=== PATIENT | male | born 1950 | race Caucasian/White ===

== ENCOUNTER 2019-03-25 14:27 | Inpatient (IN) | payer OTHER ==
--- NOTE | 2019-03-25 14:32 | PDOC ---
Rapid Medical Evaluation Time Seen by Provider: 03/25/19 14:30 Medical Evaluation: Allergies Allergy/AdvReac Type Severity Reaction Status Date / Time No Known Drug Allergies Allergy Verified 05/07/13 09:09 03/25/19 14:31 I have performed a brief in-person evaluation of this patient. The patient presents with a chief complaint of: arm swelling Pertinent physical exam findings:stable and in NAD, non-focal I have ordered the following:labs The patient will proceed to the ED for further evaluation.
--- NOTE | 2019-03-25 15:01 | PDOC ---
History of Present Illness - General Chief Complaint: Wound Stated Complaint: LT ARM PAIN Time Seen by Provider: 03/25/19 14:30 - History of Present Illness Initial Comments: The pt is a 69M w/ a history of hypothyroidism and HLD who presents for evaluation of 2 days of LUE swelling, redness, and tenderness after receiving the PNA vaccine. He reports worsening swelling, redness, and pain from his shoulder to hand. He tried taking Naproxen at home with minimal relief of pain. He is also s/p 2 doses of Augmentin. He denies fevers/chills, generalized myalgias, malaise, N/V, or other rash/ swelling. He has never received the PNA vaccine before but has not has this type of reaction to previous vaccines. 03/25/19 15:02 Past History - Past Medical History Allergies/Adverse Reactions: Allergies Allergy/AdvReac Type Severity Reaction Status Date / Time Quinolones Allergy Severe Rash Verified 03/25/19 15:29 Home Medications: Ambulatory Orders Levothyroxine [Synthroid -] 125 mcg PO DAILY 05/07/13 Rosuvastatin Calcium [Crestor] 10 mg PO DAILY 05/07/13 Anemia: No Asthma: No Cancer: No Cardiac Disorders: No CVA: No COPD: No CHF: No Dementia: No Diabetes: No GI Disorders: No Disorders: No HTN: No Hypercholesterolemia: Yes Liver Disease: No Seizures: No Thyroid Disease: Yes (HYPOTHYROID) - Surgical History Abdominal Surgery: No Appendectomy: Yes Cardiac Surgery: No Cholecystectomy: No Lung Surgery: No Neurologic Surgery: No Orthopedic Surgery: Yes (DUPUYTRENS RELEASE RIGHT HAND X2,) - Immunization History Immunization Up to Date: No - Psycho Social/Smoking Cessation Hx Smoking History: Never smoked Have you smoked in the past 12 months: No If you are a former smoker, when did you quit?: 30YRS AGO Information on smoking cessation initiated: No Hx Alcohol Use: Yes Drug/Substance Use Hx: No Substance Use Type: Alcohol Hx Substance Use Treatment: No Review of Systems - Review of Systems Able to Perform ROS?: Yes Comments:: GENERAL/CONSTITUTIONAL: No fever or chills. No weakness HEAD, EYES, EARS, NOSE AND THROAT: No change in vision. No change in hearing. No sore throat CARDIOVASCULAR: No chest pain or shortness of breath RESPIRATORY: Denies cough, hemoptysis GASTROINTESTINAL: No nausea, vomiting, diarrhea or constipation GENITOURINARY: No dysuria, frequency, or change in urination MUSCULOSKELETAL: +LUE swelling/pain. No neck or back pain SKIN: LUE redness/swelling NEUROLOGIC: No headache, vertigo, loss of consciousness, or change in strength/ sensation ENDOCRINE: No increased thirst. No abnormal weight change HEMATOLOGIC/LYMPHATIC: No anemia, easy bleeding, or history of blood clots ALLERGIC/IMMUNOLOGIC: No hives or skin allergy 03/25/19 15:01 Is the patient limited Welsh proficient: No *Physical Exam - Vital Signs Last Vital Signs Temp Pulse Resp BP Pulse Ox 97.9 F 68 16 93/70 98 03/25/19 14:31 03/25/19 14:31 03/25/19 14:31 03/25/19 14:31 03/25/19 14:31 - Physical Exam Comments: GENERAL: Awake, alert, and oriented to person/place/time, in no acute distress HEAD: No signs of trauma, normocephalic, atraumatic EYES: PERRLA, EOMI, sclera anicteric, conjunctiva clear ENT: Hearing grossly normal, nares patent, oropharynx clear without exudates. Moist mucosa LUNGS: No distress, speaks in full sentences, clear to auscultation bilaterally HEART: Regular rate and rhythm, normal S1 and S2, no murmurs appreciated, b/l radial pulses 2+ ABDOMEN: Soft, nontender, normoactive bowel sounds. No guarding, no rebound EXTREMITIES: +LUE swelling from hand to proximal upper extremity; increased tenderness throughout extremity; ROM intact; no pain on passive stretch NEUROLOGICAL: Cranial nerves II through XII grossly intact. Normal speech, normal gait, no focal sensorimotor deficits SKIN: +erythema of LUE from wrist to proximal LUE circumferentially 03/25/19 15:01 ED Treatment Course - LABORATORY CBC & Chemistry Diagram: 03/25/19 15:30 03/25/19 15:30 Medical Decision Making - Medical Decision Making The pt is a 69M w/ a history of hypothyroidism and HLD who presents for evaluation of 2 days of LUE cellulitis after receiving the PNA vaccine. ED Course CMP, CBC, Blood cultures ECG Will obtain LUE duplex to eval for DVT Case discussed with Dr. Hansen, will give Zosyn if Cr wnl 03/25/19 15:26 Lytes wnl No LILIBETH LFTs wnl Zosyn 4.5g IV once for cellulitis Plan for admission for IV abx 03/25/19 16:40 Pt signed out to [facility] Admitting 03/25/19 17:16 LUE US w/o evidence of DVT ECG w/ NSR; HR 63; QTc 440; several PAC's noted; borderline left axis deviation ; no VAIBHAV; interpreted by me 03/25/19 18:52 Discharge - Discharge Information Problems reviewed: Yes Clinical Impression/Diagnosis: Cellulitis of left upper extremity HLD (hyperlipidemia) Qualifiers: Hyperlipidemia type: unspecified Qualified Code(s): E78.5 - Hyperlipidemia, unspecified Hypothyroidism Qualifiers: Hypothyroidism type: unspecified Qualified Code(s): E03.9 - Hypothyroidism, unspecified Condition: Stable - Admission Yes - Follow up/Referral - Patient Discharge Instructions - Post Discharge Activity
--- NOTE | 2019-03-25 15:40 | PDOC ---
Documentation entered by Arvin Garcia SCRIBE, acting as scribe for Constantine Toney MD. Constantine Toney MD: This documentation has been prepared by the Radha harrington Nirvannie, SCRIBE, under my direction and personally reviewed by me in its entirety. I confirm that the documentation accurately reflects all work, treatment, procedures, and medical decision making performed by me. Attending Attestation - Resident Resident Name: Nabor Freire - ED Attending Attestation I have performed the following: I have examined & evaluated the patient, The case was reviewed & discussed with the resident, I agree w/resident's findings & plan, Exceptions are as noted - HPI HPI: 03/25/19 15:40 69 M with h/o hypothyroidism, HLD, presenting to ED with LUE swelling, redness, and pain. Pt notes that he had a pneumonia vaccine 2 days ago. He subsequently developed gradually worsening redness and swelling, extending from his shoulder to his hand. Pt notes that he was started on augmentin 2 days ago with no improvement. Denies F/C. - Physicial Exam PE: 03/25/19 15:44 "GENERAL: Awake, alert, and fully oriented, in no acute distress. HEAD: No signs of trauma EYES: PERRLA, EOMI, sclera anicteric, conjunctiva clear ENT: Auricles normal inspection, hearing grossly normal, nares patent, oropharynx clear without exudates. Moist mucosa NECK: Nontender, no stepoffs, Normal ROM, supple, no lymphadenopathy, JVD, or masses LUNGS: Breath sounds equal, clear to auscultation bilaterally. No wheezes, and no crackles HEART: Regular rate and rhythm, normal S1 and S2, no murmurs, rubs or gallops ABDOMEN: Soft, nontender, normoactive bowel sounds. No guarding, no rebound. No masses EXTREMITIES: + LUE with erythema, edema extending from hand to shoulder NEUROLOGICAL: Cranial nerves II through XII intact. 5/5 strength and sensation in all extremities, Normal speech, normal gait, normal cerebellar function SKIN: Warm, Dry, normal turgor, no rashes or lesions noted." - Medical Decision Making 03/25/19 15:44 69 M with likely cellulitis. Will r/o DVT given asymmetric swelling. - Labs, cultures - LUE doppler - IV abx - ID consult
[2019-03-25 16:04] LABS: BASO % 1.2 % (0-2.0); EOS % 1.6 % (0-4.5); HEMATOCRIT 37.6 % (35.4-49); HEMOGLOBIN 12.7 GM/dL (11.7-16.9); LYMPH % 15.7 % (8-40); MCH 31.6 pg (25.7-33.7); MCHC 33.9 g/dl (32.0-35.9); MEAN CELL VOLUME 93.2 fl (80-96); MEAN PLT VOLUME 8.2 fl (7.5-11.1); MONO % 4.9 % (3.8-10.2); NEUT % 76.6 % (42.8-82.8); PLATELET COUNT 173 K/MM3 (134-434); RBC 4.03 M/mm3 (4.00-5.60); RDW 13.1 % (11.9-15.9)
[2019-03-25 16:34] LABS: INR 0.97 (0.83-1.09); PROTHROMBIN TIME (PATIENT) 11.5 SEC (9.7-13.0)
[2019-03-25 16:36] LABS: ALBUMIN 4.2 g/dl (3.4-5.0); BILIRUBIN,TOTAL 0.6 mg/dL (0.2-1); CALCIUM 8.8 mg/dL (8.5-10.1); CREATININE 1.1 mg/dL (0.55-1.3); POTASSIUM 4.3 mmol/L (3.5-5.1); TOT PROT 6.8 g/dl (6.4-8.2)
[2019-03-25] MEDS ORDERED: PIPERACILLIN/TAZOB 4.5 GM 4.5 GM in DEXTROSE 5%-WATER 100 ML IVPB ONE (16:40)
[2019-03-25] MEDS ORDERED: PIPERACILLIN/TAZOB 4.5 GM 4.5 GM/100 ML BAG IVPB ONE (16:45)
[2019-03-25] MEDS ORDERED: ACETAMINOPHEN 325 MG TABLET (FP) PO PRN (18:41)
--- NOTE | 2019-03-25 19:49 | PN ---
Teaching Attending Note Name of Resident: Linus Patrick ATTENDING PHYSICIAN STATEMENT I saw and evaluated the patient. I reviewed the resident's note and discussed the case with the resident. I agree with the resident's findings and plan as documented. SUBJECTIVE: CC: pain and swelling in LUE. HPI: 69 y/o man with h/o Hypothyroidism, and hyperlpidemia who presented with erythema, edema and pain in LUE. he reports receiving Pneumo vaccine ( L upper arm) and flu vaccine ( R upper arm ) 2 days ago. early next am , he woke up with severe painin R upper arm and took tylenol. He noticed today that his LUE is swollen. pain has resolved. he was asked to take Augmentin by his PCP ( took two pills today ). he was asked to present to ER. OBJECTIVE: NAD, AAox3 HEENT: MMM, no facial droop. no LAP in neck CV: RRR, no MRG Lungs: CATB Ext : No edema or erythema on LE . LUE qith slight erythema, increased warmth and edema of the entire arm and upper arm and hand. RP 2+ . no LAP in axilla. RUE with erythema, and increased warmth in deltoid area only. RP 2+ . No LAP in axilla Neuro : EOMI, no facial droop, round equal pupils, reactive to light , tongue at mid line strength 5/5 in upper and lwoer extremities proximally and distally ASSESSMENT AND PLAN: 69 y/o man with h/o Hypothyroidism, and hyperlpidemia who presented with erythema, edema and pain in LUE. 1- Upper extremity edema , pain and erythema. DDX includes a local reaction to the vaccine Vs cellulitis . RUE is less involved than LUE. cant' differentiate the two conditions, so will treat fro cellulitis No systemic signs . No SIRS or sepsis started on zosyn by ID, will cont follow blood cx sent in ER No DVT . cbc in am 2- H/o hypothyroidism and hyperlipidemia. cont meds 3- DVT PX : start lovenox
--- NOTE | 2019-03-25 20:12 | HP ---
CHIEF COMPLAINT: Left arm swelling and redness PCP: Dr. 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 Pt reports that the symptoms were worse on onset but has resolved significantly since then, with complete resolution of pain after taking tylenol. Pt was prescribed augmentin by his physician family member, which he took for two day, last night and today. Pt also reports being sick a week ago for which he took augmentin and finished his last dose on friday. Today pt has full ROM of his arms but swelling and redness is still presents. 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 Pt denies any similar previous episodes. Denies f/c/n/v/d/sob/ chest pain, worsening of symptoms, spreading of symptoms else where. ER course was notable for: (1)Pt was started on zosyn (2)LUE U/S doppler was done to r/o DVT- negative (3) Recent Travel: none PAST MEDICAL HISTORY: HLD, and Hypothyroidism PAST SURGICAL HISTORY: Dupuytren's contracture repair Social History: Smoking: cigars occasionally Alcohol: denies Drugs: denies Allergies Quinolones Allergy (Severe, Verified 03/25/19 15:29) Rash HOME MEDICATIONS: Home Medications Medication Instructions Recorded Levothyroxine [Synthroid -] 125 mcg PO DAILY 05/07/13 Rosuvastatin Calcium [Crestor] 10 mg PO DAILY 05/07/13 REVIEW OF SYSTEMS CONSTITUTIONAL: Absent: fever, chills, diaphoresis, generalized weakness, malaise, loss of appetite CARDIOVASCULAR: Absent: chest pain, syncope, palpitations, irregular heart rate, RESPIRATORY: Absent: cough, shortness of breath, dyspnea with exertion, GASTROINTESTINAL: Absent: abdominal pain, abdominal distension, nausea, vomiting, diarrhea, MUSCULOSKELETAL: Absent: myalgia, arthralgia, joint swelling, back pain, neck pain SKIN: Admits: redness and swelling of the left arm. Significantly improved than 2 days ago. Absent: itching, pallor HEMATOLOGIC/IMMUNOLOGIC: Absent: easy bleeding, easy bruising, lymphadenopathy, frequent infections ENDOCRINE: Absent: unexplained weight gain, unexplained weight loss, heat intolerance, cold intolerance NEUROLOGIC: Absent: headache, focal weakness or paresthesias, dizziness, unsteady gait, seizure, mental status changes, bladder or bowel incontinence PSYCHIATRIC: Absent: anxiety, depression, suicidal or homicidal ideation, hallucinations. PHYSICAL EXAMINATION Vital Signs - 24 hr Last Vital Signs Temp Pulse Resp BP Pulse Ox 97.6 F 60 18 106/70 100 03/25/19 19:28 03/25/19 19:28 03/25/19 19:28 03/25/19 19:28 03/25/19 19:28 GENERAL: Awake, alert, and fully oriented, in no acute distress. EYES: Pupils equal, round and reactive to light, extraocular movements intact, EARS, NOSE, THROAT: oropharynx clear without exudates. Moist mucous membranes. NECK: no LAD, supple LUNGS: Breath sounds equal, clear to auscultation bilaterally. No wheezes, and no crackles. HEART: Regular rate and rhythm, normal S1 and S2 without murmur, rub or gallop. ABDOMEN: Soft, nontender, not distended, normoactive bowel sounds, no guarding, no rebound, no masses. MUSCULOSKELETAL: Normal range of motion at all joints. No bony deformities or tenderness. No CVA tenderness. UPPER EXTREMITIES: Redness, swelling, warm and mild tenderness in the Left UE, without pain or limited mobility. Left arm looks significantly more swollen than right. 2+ Pulses intact LOWER EXTREMITIES: 2+ pulses, warm, well-perfused. No calf tenderness. No peripheral edema. NEUROLOGICAL: Cranial nerves II-XII intact. Sensation intact b/l 5/5, strengthen 5/5 b/l SKIN: Warm, dry, normal turgor, Laboratory Results - last 24 hr WBC 8.0 K/mm3 (4.0-10.0) 03/25/19 15:30 RBC 4.03 M/mm3 (4.00-5.60) 03/25/19 15:30 Hgb 12.7 GM/dL (11.7-16.9) 03/25/19 15:30 Hct 37.6 % (35.4-49) 03/25/19 15:30 MCV 93.2 fl (80-96) 03/25/19 15:30 MCH 31.6 pg (25.7-33.7) 03/25/19 15:30 MCHC 33.9 g/dl (32.0-35.9) 03/25/19 15:30 RDW 13.1 % (11.9-15.9) 03/25/19 15:30 Plt Count 173 K/MM3 (134-434) 03/25/19 15:30 MPV 8.2 fl (7.5-11.1) 03/25/19 15:30 Absolute Neuts (auto) 6.1 K/mm3 (1.5-8.0) 03/25/19 15:30 Neutrophils % 76.6 % (42.8-82.8) 03/25/19 15:30 Lymphocytes % 15.7 % (8-40) D 03/25/19 15:30 Monocytes % 4.9 % (3.8-10.2) 03/25/19 15:30 Eosinophils % 1.6 % (0-4.5) 03/25/19 15:30 Basophils % 1.2 % (0-2.0) D 03/25/19 15:30 Nucleated RBC % 0 % (0-0) 03/25/19 15:30 Sodium 139 mmol/L (136-145) 03/25/19 15:30 Potassium 4.3 mmol/L (3.5-5.1) 03/25/19 15:30 Chloride 107 mmol/L (98-107) 03/25/19 15:30 Carbon Dioxide 27 mmol/L (21-32) 03/25/19 15:30 Anion Gap 5 MMOL/L (8-16) L 03/25/19 15:30 BUN 21.0 mg/dL (7-18) H 03/25/19 15:30 Creatinine 1.1 mg/dL (0.55-1.3) 03/25/19 15:30 Est GFR (CKD-EPI)AfAm 79.52 03/25/19 15:30 Est GFR (CKD-EPI)NonAf 68.61 03/25/19 15:30 Random Glucose 82 mg/dL (74-106) 03/25/19 15:30 Calcium 8.8 mg/dL (8.5-10.1) 03/25/19 15:30 Total Bilirubin 0.6 mg/dL (0.2-1) 03/25/19 15:30 AST 30 U/L (15-37) 03/25/19 15:30 ALT 48 U/L (13-61) 03/25/19 15:30 Alkaline Phosphatase 62 U/L (45-117) 03/25/19 15:30 Total Protein 6.8 g/dl (6.4-8.2) 03/25/19 15:30 Albumin 4.2 g/dl (3.4-5.0) 03/25/19 15:30 ASSESSMENT/PLAN: 69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 Hansen consulted- will f/u recommendation Will f/u BCx LUE U/S doppler- shows no DVT F/u Labs in the am #Hypothyroidism continue levothyroxine 125 mcg #HLD cont crestor 10mg #DVT ppx Lovenox Dispo: cont zosyn, f/u with ID and BCx Visit type - Emergency Visit Emergency Visit: Yes ED Registration Date: 03/25/19 Care time: The patient presented to the Emergency Department on the above date and was hospitalized for further evaluation of their emergent condition. - New Patient This patient is new to me today: Yes Date on this admission: 03/25/19 - Critical Care Critical Care patient: No ATTENDING PHYSICIAN STATEMENT I saw and evaluated the patient. I reviewed the resident's note and discussed the case with the resident. I agree with the resident's findings and plan as documented. SUBJECTIVE: OBJECTIVE: ASSESSMENT AND PLAN:
[2019-03-25] MEDS ORDERED: ROSUVASTATIN CA 10 MG TABLET (FP) PO ONE (22:00)
[2019-03-25 23:55] VITALS: BMI 25.2
[2019-03-26] MEDS ORDERED: PIPERACILLIN/TAZOBACTAM 3.375 GM VIAL IVPB ONE ×3 (01:21→17:08)
[2019-03-26] MEDS ORDERED: DEXTROSE 5%-WATER - 50 ML IVPB ONE ×3 (01:22→17:08)
[2019-03-26] MEDS: PIPERACILLIN/TAZOB 3.375 GM 3.375 GM in DEXTROSE 5%-WATER - 50 ML IVPB SCH ×3 (01:40→17:25)
[2019-03-26 06:10] LABS: HEMATOCRIT 33.6 % (35.4-49); HEMOGLOBIN 11.4 GM/dL (11.7-16.9); MCH 31.7 pg (25.7-33.7); MCHC 33.8 g/dl (32.0-35.9); MEAN CELL VOLUME 93.7 fl (80-96); MEAN PLT VOLUME 8.1 fl (7.5-11.1); PLATELET COUNT 148 K/MM3 (134-434); RBC 3.59 M/mm3 (4.00-5.60); RDW 13.1 % (11.9-15.9); WHITE BLOOD COUNT 6.1 K/mm3 (4.0-10.0)
[2019-03-26] MEDS: LEVOTHYROXINE NA 125 MCG TABLET (FP) PO SCH (06:32)
[2019-03-26] MEDS: ENOXAPARIN NA (PORCINE) 40 MG/0.4 ML DISP.SYRIN SQ SCH (09:01)
--- NOTE | 2019-03-26 13:27 | CON.ID ---
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 Pt reports that the symptoms were worse on onset but has resolved significantly since then, with complete resolution of pain after taking tylenol. Pt was prescribed augmentin by his physician family member, which he took for two day, last night and today. Pt also reports being sick a week ago for which he took augmentin and finished his last dose on friday. Today pt has full ROM of his arms but swelling and redness is still presents. 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 patient was started on abx - History Source History Provided By: Patient Limitations to Obtaining History: No Limitations - Alcohol/Substance Use Hx Alcohol Use: Yes (occasional social drink) - Smoking History Smoking history: Former smoker Have you smoked in the past 12 months: No If you are a former smoker, when did you quit?: 30YRS AGO Home Medications - Allergies Allergies/Adverse Reactions: Allergies Allergy/AdvReac Type Severity Reaction Status Date / Time Quinolones Allergy Severe Rash Verified 03/25/19 15:29 - Home Medications Home Medications: Ambulatory Orders Levothyroxine [Synthroid -] 125 mcg PO DAILY 05/07/13 Rosuvastatin Calcium [Crestor] 10 mg PO DAILY 05/07/13 Review of Systems - Review of Systems Constitutional: reports: No Symptoms Eyes: reports: No Symptoms HENT: reports: No Symptoms Neck: reports: No Symptoms Cardiovascular: reports: No Symptoms Respiratory: reports: No Symptoms Gastrointestinal: reports: No Symptoms Genitourinary: reports: No Symptoms Musculoskeletal: reports: No Symptoms Integumentary: reports: Erythema (of the left hand swelling of the left hand) Neurological: reports: No Symptoms Endocrine: reports: No Symptoms Hematology/Lymphatic: reports: No Symptoms Psychiatric: reports: No Symptoms Physical Exam Vital Signs: Vital Signs Temperature 98.4 F 03/26/19 10:09 Pulse Rate 62 03/26/19 10:09 Respiratory Rate 18 03/26/19 10:09 Blood Pressure 102/63 11/15/19 10:09 O2 Sat by Pulse Oximetry (%) 98 03/26/19 09:00 Constitutional: Yes: Well Nourished, Calm, Mild Distress Eyes: Yes: Conjunctiva Clear HENT: Yes: Atraumatic, Normocephalic Neck: Yes: Supple, Trachea Midline Cardiovascular: Yes: Regular Rate and Rhythm Respiratory: Yes: Regular, CTA Bilaterally Gastrointestinal: Yes: Normal Bowel Sounds, Soft Musculoskeletal: Yes: Other Extremities: Yes: Erythema (of the left hand) Neurological: Yes: Alert, Oriented Psychiatric: Yes: Alert, Oriented Labs: CBC, BMP 03/26/19 05:50 03/25/19 15:30 Imaging - Results Ultrasound: Report Reviewed, Image Reviewed Assessment/Plan 69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
--- NOTE | 2019-03-26 13:46 | EKG ---
Test Reason : Blood Pressure : / mmHG Vent. Rate : 063 BPM Atrial Rate : 063 BPM P-R Int : 176 ms QRS Dur : 084 ms QT Int : 430 ms P-R-T Axes : 003 -01 044 degrees QTc Int : 440 ms SINUS RHYTHM WITH PREMATURE SUPRAVENTRICULAR COMPLEXES NO PREVIOUS ECGS AVAILABLE Confirmed by TAMIKA GOMEZ MD ([id number]) on 03/26/2019 1:46:15 PM Referred By: Confirmed By:TAMIKA GOMEZ MD
--- NOTE | 2019-03-26 14:47 | PN ---
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 Pt today is stable, afebrile and has no c/o. However, his left arm looks mildly improved but still swollen. No overnight events. Pt denies f/c/ n/v/d/sob/chest pain/ worsening of redness of pain. OBJECTIVE: Vital Signs Period Temp Pulse Resp BP Sys/Zuniga Pulse Ox Last 24 Hr 97.6 F-98.4 F 60-67 16-18 102-109/54-70 97-100 GENERAL: Awake, alert, and fully oriented, in no acute distress. EYES: Pupils equal, round and reactive to light, extraocular movements intact, EARS, NOSE, THROAT: oropharynx clear without exudates. Moist mucous membranes. NECK: no LAD, supple LUNGS: Breath sounds equal, clear to auscultation bilaterally. No wheezes, and no crackles. HEART: Regular rate and rhythm, normal S1 and S2 without murmur, rub or gallop. ABDOMEN: Soft, nontender, not distended, normoactive bowel sounds, no guarding, no rebound, no masses. MUSCULOSKELETAL: Normal range of motion at all joints. No bony deformities or tenderness. No CVA tenderness. UPPER EXTREMITIES: Redness, swelling, warm and mild tenderness in the Left UE, without pain or limited mobility. Left arm looks significantly more swollen than right. 2+ Pulses intact. Appears to be improving LOWER EXTREMITIES: 2+ pulses, warm, well-perfused. No calf tenderness. No peripheral edema. NEUROLOGICAL: Cranial nerves II-XII intact. Sensation intact b/l 5/5, strengthen 5/5 b/l SKIN: Warm, dry, normal turgor, Laboratory Results - last 24 hr CBC,CMP WBC 6.1 K/mm3 (4.0-10.0) 03/26/19 05:50 RBC 3.59 M/mm3 (4.00-5.60) L 03/26/19 05:50 Hgb 11.4 GM/dL (11.7-16.9) L 03/26/19 05:50 Hct 33.6 % (35.4-49) L 03/26/19 05:50 MCV 93.7 fl (80-96) 03/26/19 05:50 MCH 31.7 pg (25.7-33.7) 03/26/19 05:50 MCHC 33.8 g/dl (32.0-35.9) 03/26/19 05:50 RDW 13.1 % (11.9-15.9) 03/26/19 05:50 Plt Count 148 K/MM3 (134-434) 03/26/19 05:50 MPV 8.1 fl (7.5-11.1) 03/26/19 05:50 Absolute Neuts (auto) 6.1 K/mm3 (1.5-8.0) 03/25/19 15:30 Neutrophils % 76.6 % (42.8-82.8) 03/25/19 15:30 Lymphocytes % 15.7 % (8-40) D 03/25/19 15:30 Monocytes % 4.9 % (3.8-10.2) 03/25/19 15:30 Eosinophils % 1.6 % (0-4.5) 03/25/19 15:30 Basophils % 1.2 % (0-2.0) D 03/25/19 15:30 Nucleated RBC % 0 % (0-0) 03/25/19 15:30 Sodium 139 mmol/L (136-145) 03/25/19 15:30 Potassium 4.3 mmol/L (3.5-5.1) 03/25/19 15:30 Chloride 107 mmol/L (98-107) 03/25/19 15:30 Carbon Dioxide 27 mmol/L (21-32) 03/25/19 15:30 Anion Gap 5 MMOL/L (8-16) L 03/25/19 15:30 BUN 21.0 mg/dL (7-18) H 03/25/19 15:30 Creatinine 1.1 mg/dL (0.55-1.3) 03/25/19 15:30 Est GFR (CKD-EPI)AfAm 79.52 03/25/19 15:30 Est GFR (CKD-EPI)NonAf 68.61 03/25/19 15:30 Random Glucose 82 mg/dL (74-106) 03/25/19 15:30 Calcium 8.8 mg/dL (8.5-10.1) 03/25/19 15:30 Total Bilirubin 0.6 mg/dL (0.2-1) 03/25/19 15:30 AST 30 U/L (15-37) 03/25/19 15:30 ALT 48 U/L (13-61) 03/25/19 15:30 Alkaline Phosphatase 62 U/L (45-117) 03/25/19 15:30 Total Protein 6.8 g/dl (6.4-8.2) 03/25/19 15:30 Albumin 4.2 g/dl (3.4-5.0) 03/25/19 15:30 Active Medications Current Medications Acetaminophen (Tylenol -) 650 mg PO Q4H PRN PRN Reason: PAIN Enoxaparin Sodium (Lovenox -) 40 mg SQ DAILY [facility] Last Admin: 03/26/19 09:01 Dose: 40 mg Piperacillin Sod/Tazobactam (Sod 3.375 gm/ Dextrose) 50 mls @ 100 mls/hr IVPB Q8H-IV NGUYỄN; Protocol Last Admin: 03/26/19 09:02 Dose: 100 mls/hr Levothyroxine Sodium (Synthroid -) 125 mcg PO AM NGUYỄN Last Admin: 03/26/19 06:32 Dose: 125 mcg Rosuvastatin Calcium (Crestor -) 10 mg PO HS [facility] Home Medications Medication Instructions Recorded Levothyroxine [Synthroid -] 125 mcg PO DAILY 05/07/13 Rosuvastatin Calcium [Crestor] 10 mg PO DAILY 05/07/13 ASSESSMENT/PLAN: 69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, dentist, pmh of HLD, and Hypothyroidism, presents to the ED w/ left arm pain, swelling, redness and limited movement of 3 day duration likely 2/2 to cellulites #Left arm swelling, pain and redness likely 2/2 to Cellulitis vs vaccine reaction Pt has no systemic symptoms Pt started on zosyn 3.375 Q8H- we will continue Abx for 2 more days Will f/u BCx-pending F/u Labs in the am #Hypothyroidism continue levothyroxine 125 mcg #HLD cont crestor 10mg #DVT ppx Lovenox Dispo: cont zosyn, f/u Bcx, monitor labs and temperature for systemic symptoms Visit type - Emergency Visit Emergency Visit: Yes ED Registration Date: 03/25/19 Care time: The patient presented to the Emergency Department on the above date and was hospitalized for further evaluation of their emergent condition. - New Patient This patient is new to me today: Yes Date on this admission: 03/26/19 - Critical Care Critical Care patient: No - Discharge Referral Referred to [facility] No ATTENDING PHYSICIAN STATEMENT I saw and evaluated the patient. I reviewed the resident's note and discussed the case with the resident. I agree with the resident's findings and plan as documented. SUBJECTIVE: OBJECTIVE: ASSESSMENT AND PLAN:
--- NOTE | 2019-03-26 15:42 | PN ---
Teaching Attending Note Name of Resident: Linus Patrick ATTENDING PHYSICIAN STATEMENT I saw and evaluated the patient. I reviewed the resident's note and discussed the case with the resident. I agree with the resident's findings and plan as documented. SUBJECTIVE: No fever or chills. No pain in upper extremities. Feels " fine " OBJECTIVE: NAD, pleasant and cooperative HEENT: MMM, no facial droop. No LAP in neck CV: RRR, no MRG Lungs: CATB Ext : No edema or erythema on LE. LUE with resolution of erythema and improvement in edema. RP 2+ . Nl temperature RUE with resolution of edema and erythema in deltoid area. ASSESSMENT AND PLAN: 69 y/o man with h/o Hypothyroidism, and hyperlpidemia who presented with erythema, edema and pain in LUE. 1- Cellulitis vs local reaction to vaccine in b/l upper extremities . - RUE edema /erythema resolved completely. LUE erythema resolved and edema improved - cont zosyn - still no systemic signs or symptoms - blood cx still pending 2- Normocytic anemia. drop in Hb could be a lab variation. No signs of overt bleed. No signs of anemia. - work up for anemia can be done as out pt with PCP if not already done 3- PACs on EKG. Reviewed. - Check TSH ( on synthroid therapy ) - Tele - Dr. Hui was already called and consulted by Dr. Cowan. 4- H/o hypothyroidism and hyperlipidemia. cont meds fro now. TSH pending 5- DVT PX : lovenox
--- NOTE | 2019-03-26 16:40 | CON.CARD ---
Cardiology Consult (text) - Consultation Consultation Note: cc: arm pain, redness, swelling hpi: 69 m hx hld, hypothyroid here with arm pain, redness, swelling after pna vaccine. No cp sob palps dizzy loc pnd orthopnea le edema. No hx hrt dz. Uses treadmill often, no anginal sxs. Being treated for arm cellulitis. Had pacs on ecg so cardio eval requested. pmh: per hpi psh: hand surgery social: no tob fam: no premature cad, scd ros: per hpi; all others nl meds: Home Medications Medication Instructions Recorded Levothyroxine [Synthroid -] 125 mcg PO DAILY 05/07/13 Rosuvastatin Calcium [Crestor] 10 mg PO DAILY 05/07/13 pe: Vital Signs Period Temp Pulse Resp BP Sys/Zuniga Pulse Ox Last 24 Hr 97.6 F-98.4 F 60-67 16-18 101-109/54-70 97-100 nad no jvd rrr s1s2 no mrg cta bl nl eff aao3 no le e/c/c abd nt nd pos bs no jaundice diaphoresis pos dp pt no carotid bruits Laboratory Last Values WBC 6.1 K/mm3 (4.0-10.0) 03/26/19 05:50 RBC 3.59 M/mm3 (4.00-5.60) L 03/26/19 05:50 Hgb 11.4 GM/dL (11.7-16.9) L 03/26/19 05:50 Hct 33.6 % (35.4-49) L 03/26/19 05:50 MCV 93.7 fl (80-96) 03/26/19 05:50 MCH 31.7 pg (25.7-33.7) 03/26/19 05:50 MCHC 33.8 g/dl (32.0-35.9) 03/26/19 05:50 RDW 13.1 % (11.9-15.9) 03/26/19 05:50 Plt Count 148 K/MM3 (134-434) 03/26/19 05:50 MPV 8.1 fl (7.5-11.1) 03/26/19 05:50 Absolute Neuts (auto) 6.1 K/mm3 (1.5-8.0) 03/25/19 15:30 Neutrophils % 76.6 % (42.8-82.8) 03/25/19 15:30 Lymphocytes % 15.7 % (8-40) D 03/25/19 15:30 Monocytes % 4.9 % (3.8-10.2) 03/25/19 15:30 Eosinophils % 1.6 % (0-4.5) 03/25/19 15:30 Basophils % 1.2 % (0-2.0) D 03/25/19 15:30 Nucleated RBC % 0 % (0-0) 03/25/19 15:30 PT with INR 11.50 SEC (9.7-13.0) 03/25/19 15:30 INR 0.97 (0.83-1.09) 03/25/19 15:30 Sodium 139 mmol/L (136-145) 03/25/19 15:30 Potassium 4.3 mmol/L (3.5-5.1) 03/25/19 15:30 Chloride 107 mmol/L (98-107) 03/25/19 15:30 Carbon Dioxide 27 mmol/L (21-32) 03/25/19 15:30 Anion Gap 5 MMOL/L (8-16) L 03/25/19 15:30 BUN 21.0 mg/dL (7-18) H 03/25/19 15:30 Creatinine 1.1 mg/dL (0.55-1.3) 03/25/19 15:30 Est GFR (CKD-EPI)AfAm 79.52 03/25/19 15:30 Est GFR (CKD-EPI)NonAf 68.61 03/25/19 15:30 Random Glucose 82 mg/dL (74-106) 03/25/19 15:30 Calcium 8.8 mg/dL (8.5-10.1) 03/25/19 15:30 Total Bilirubin 0.6 mg/dL (0.2-1) 03/25/19 15:30 AST 30 U/L (15-37) 03/25/19 15:30 ALT 48 U/L (13-61) 03/25/19 15:30 Alkaline Phosphatase 62 U/L (45-117) 03/25/19 15:30 Total Protein 6.8 g/dl (6.4-8.2) 03/25/19 15:30 Albumin 4.2 g/dl (3.4-5.0) 03/25/19 15:30 mibi 03/2017: nl mpi echo 02/2017: nl lv/rv, no sig valve path, nl rvsp ecg: sr, consecutive pacs, nl intervals, no ischemic changes a/p: 69 m hx hld, hypothyroid here with arm pain, redness, swelling after pna vaccine. abnl ecg, pacs: -ecg showing consecutive pacs, otherwise unremarkable. pt has no cardiac sxs. check tsh given hx of hypothyroid on synthroid. monitor on tele. likely benign ectopy. hld: -cont statin hypothyroid: -check tsh -on synthroid arm cellullitis: -abx per ID
[2019-03-26] MEDS ORDERED: ROSUVASTATIN CA 10 MG TABLET (FP) PO SCH (22:00)
[2019-03-27] MEDS ORDERED: DEXTROSE 5%-WATER - 50 ML IVPB ONE ×3 (01:03→14:23)
[2019-03-27] MEDS ORDERED: PIPERACILLIN/TAZOBACTAM 3.375 GM VIAL IVPB ONE ×3 (01:03→14:22)
[2019-03-27] MEDS: PIPERACILLIN/TAZOB 3.375 GM 3.375 GM in DEXTROSE 5%-WATER - 50 ML IVPB SCH ×2 (01:05→09:14)
[2019-03-27] MEDS: LEVOTHYROXINE NA 125 MCG TABLET (FP) PO SCH (06:19)
[2019-03-27 07:19] LABS: HEMATOCRIT 33.7 % (35.4-49); HEMOGLOBIN 11.6 GM/dL (11.7-16.9); MCH 31.9 pg (25.7-33.7); MCHC 34.3 g/dl (32.0-35.9); MEAN CELL VOLUME 93.1 fl (80-96); MEAN PLT VOLUME 8.4 fl (7.5-11.1); PLATELET COUNT 151 K/MM3 (134-434); RBC 3.62 M/mm3 (4.00-5.60); RDW 13.1 % (11.9-15.9); WHITE BLOOD COUNT 5.1 K/mm3 (4.0-10.0)
--- NOTE | 2019-03-27 08:50 | PN ---
Progress Note, Physician History of Present Illness: No CV events overnight No CV complaints Tele reviewed showing NSR/SB at 49 (no ectopy noted) - Current Medication List Current Medications: Active Medications Acetaminophen (Tylenol -) 650 mg PO Q4H PRN PRN Reason: PAIN Enoxaparin Sodium (Lovenox -) 40 mg SQ DAILY [facility] Last Admin: 03/26/19 09:01 Dose: 40 mg Piperacillin Sod/Tazobactam (Sod 3.375 gm/ Dextrose) 50 mls @ 100 mls/hr IVPB Q8H-IV NGUYỄN; Protocol Last Admin: 03/27/19 01:05 Dose: 100 mls/hr Levothyroxine Sodium (Synthroid -) 125 mcg PO AM NGUYỄN Last Admin: 03/27/19 06:19 Dose: 125 mcg Rosuvastatin Calcium (Crestor -) 10 mg PO HS [facility] Last Admin: 03/26/19 21:16 Dose: 10 mg - Objective Vital Signs: Vital Signs Temperature 98.0 F 03/27/19 06:00 Pulse Rate 53 L 03/27/19 06:00 Respiratory Rate 18 03/27/19 06:00 Blood Pressure 108/67 03/27/19 06:00 O2 Sat by Pulse Oximetry (%) 97 03/26/19 21:00 Constitutional: Yes: Well Nourished, No Distress Eyes: Yes: WNL Neck: Yes: WNL Cardiovascular: Yes: Regular Rate and Rhythm Respiratory: Yes: CTA Bilaterally Edema: LUE: 1+ Labs: CBC, BMP 03/27/19 06:10 03/25/19 15:30 INR, PTT INR 0.97 (0.83-1.09) 03/25/19 15:30 Assessment/Plan a/p: 69 m hx hld, hypothyroid here with arm pain, redness, swelling after pna vaccine. abnl ecg, pacs: -ecg showing consecutive pacs, otherwise unremarkable. pt has no cardiac sxs. -TSH normal -Stable to discontinue telemetry hld: -cont statin hypothyroid: -normal TSH -on synthroid arm cellullitis: -abx per ID
[2019-03-27] MEDS: ENOXAPARIN NA (PORCINE) 40 MG/0.4 ML DISP.SYRIN SQ SCH (09:14)
--- NOTE | 2019-03-27 10:52 | PN ---
Teaching Attending Note Name of Resident: Goldy Estes ATTENDING PHYSICIAN STATEMENT I saw and evaluated the patient. I reviewed the resident's note and discussed the case with the resident. I agree with the resident's findings and plan as documented. SUBJECTIVE: No fever or chills. No pain , no palpitations or CP or SOB. OBJECTIVE: NAD, pleasant and cooperative. HEENT: MMM CV: RRR, no MRG Lungs: CATB Ext : No edema or erythema on LE. LUE with resolution of erythema and significant improvement in edema. RP 2+ . Nl temperature RUE with resolution of edema and erythema in deltoid area. ASSESSMENT AND PLAN: 69 y/o man with h/o Hypothyroidism, and hyperlpidemia who presented with erythema, edema and pain in LUE. 1- Cellulitis vs local reaction to vaccine in b/l upper extremities . - sx and signs have almost completely resolved. - will d/w ID , hopefully can switch to po abx today - blood cx neg x 24 hr 2- Normocytic anemia. No signs of overt bleed. No signs of anemia. - work up for anemia can be done as out pt with PCP if not already done 3- PACs on EKG. tele reviewed today . no events. TSH nl - f/u with card as out pt 4- H/o hypothyroidism and hyperlipidemia. cont meds 5- DVT PX : lovenox Possible dc today if can switch to Po abx . ID Recs pending
[2019-03-27 11:26] VITALS: BP 111/69; PULSE 68; TEMP 98.4
--- NOTE | 2019-03-27 13:52 | PN ---
Progress Note, Physician History of Present Illness: stable doing well no issues - Current Medication List Current Medications: Active Medications Acetaminophen (Tylenol -) 650 mg PO Q4H PRN PRN Reason: PAIN Enoxaparin Sodium (Lovenox -) 40 mg SQ DAILY [facility] Last Admin: 03/27/19 09:14 Dose: 40 mg Levothyroxine Sodium (Synthroid -) 125 mcg PO AM [facility] Last Admin: 03/27/19 06:19 Dose: 125 mcg Rosuvastatin Calcium (Crestor -) 10 mg PO HS [facility] Last Admin: 03/26/19 21:16 Dose: 10 mg - Objective Vital Signs: Vital Signs Temperature 98.4 F 03/27/19 10:00 Pulse Rate 68 03/27/19 10:00 Respiratory Rate 18 03/27/19 10:00 Blood Pressure 111/69 03/27/19 10:00 O2 Sat by Pulse Oximetry (%) 96 03/27/19 10:00 Constitutional: Yes: No Distress, Calm Cardiovascular: Yes: S1, S2 Respiratory: Yes: Regular, CTA Bilaterally Gastrointestinal: Yes: Normal Bowel Sounds, Soft Musculoskeletal: Yes: WNL Extremities: Yes: Erythema (resolved), Other Integumentary: Yes: Erythema (resolving) Neurological: Yes: Alert, Oriented Psychiatric: Yes: Alert, Oriented Labs: CBC, BMP 03/27/19 06:10 03/25/19 15:30 INR, PTT INR 0.97 (0.83-1.09) 03/25/19 15:30 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
[2019-03-27] MEDS ORDERED: PIPERACILLIN/TAZOB 3.375 GM 3.375 GM in DEXTROSE 5%-WATER - 50 ML IVPB ONE (14:30)
--- NOTE | 2019-03-27 15:53 | DS ---
Physical Exam: SUBJECTIVE: Patient seen and examined at bedside. No event overnight, no new complaint OBJECTIVE: Vital Signs Period Temp Pulse Resp BP Sys/Zuniga Pulse Ox Last 24 Hr 97.8 F-98.4 F 53-68 18-18 104-116/65-72 96-97 PHYSICAL EXAM GENERAL: The patient is awake, alert, and fully oriented, in no acute distress. LUNGS: Breath sounds equal, clear to auscultation bilaterally, no wheezes, no crackles, no accessory muscle use. HEART: Regular rate and rhythm, S1, S2 without murmur, rub or gallop. ABDOMEN: Soft, nontender, nondistended, normoactive bowel sounds, no guarding, no rebound, no hepatosplenomegaly, no masses. EXTREMITIES: 2+ pulses, warm, well-perfused, no edema. NEUROLOGICAL: Cranial nerves II through X grossly intact. Normal speech, gait not observed. LABS Laboratory Results - last 24 hr 03/27/19 03/27/19 06:10 06:10 WBC 5.1 RBC 3.62 L Hgb 11.6 L Hct 33.7 L MCV 93.1 MCH 31.9 MCHC 34.3 RDW 13.1 Plt Count 151 MPV 8.4 TSH 2.14 HOSPITAL COURSE: Date of Admission:03/25/19 The patient is a 69-year-old male with a past medical history hypothyroidism who presented to the emergency department complaining of left-sided arm pain, swelling, redness and limited range of motion for the past three days prior to admission. The patient stated that his symptoms began a few hours after he received the pneumonia vaccine in the affected arm. In the emergency department , he was found to have bill left upper extremity swelling and erythema. The arm was tendered to palpation. The patient was afebrile and his laboratory results were within normal limits. The Doppler ultrasound was negative for DVT. The patient was incidentally found to have premature atrial complexes are screening EKG. The patient was admitted to the hospital for IV antibiotic treatment for cellulitis. Infectious disease was consulted. Cardiology was consulted for the patient premature atrial complexes. The patient was treated with Zosyn, Synthroid, and Crestor. Tylenol was used for pain control. Cardiology evaluate the patient and saw no indication for acute intervention. The patient's left arm swelling improved on the above treatment. He remained afebrile and his white Remained within normal limits. The patient was discharged home with instructions to complete four days of Augmentin 875 mg BID. He was instructed to follow-up with his primary care physician as well as a it systems analyst within one week of discharge home. Date of Discharge: 03/27/19 Minutes to complete discharge: 35 Discharge Summary Problems reviewed: Yes Reason For Visit: CELLULITIS OF LEFT UPPER EXTREMITY Current Active Problems Cellulitis of left upper extremity (Acute) Condition: Improved - Instructions Diet, Activity, Other Instructions: You were admitted for the treatment of your swollen arms. We should continue to take an antibiotic called Augmentin to help fight your infection. You should take 875mg of this medication every 12 hours for the next 4 days until they are done. You should resume taking your home medications as prescribed. You should follow up with your primary care doctor within one week of discharge home. If you begin to experience fevers, chills, worsening redness in the arm or if any of your symptoms get worse, please call your doctor or return to the emergency department. please follow up with Dr. Hui in 1-2 weeks. You need anemia work up started by Your primary care doctor. if not already done. please report to him Good luck Referrals: Trever Hui MD [Staff Physician] - Matt Wolfe MD [Primary Care Provider] - 1 Week Disposition: HOME - Home Medications Comprehensive Discharge Medication List: Ambulatory Orders Levothyroxine [Synthroid -] 125 mcg PO DAILY 05/07/13 Rosuvastatin Calcium [Crestor] 10 mg PO DAILY 05/07/13 Amoxicillin/Potassium Clav [Augmentin 875-125 Tablet] 1 each PO Q12H 4 Days #8 tablet 03/27/19 This patient is new to me today: Yes Date on this admission: 03/29/19 Emergency Visit: Yes ED Registration Date: 03/25/19 Care time: The patient presented to the Emergency Department on the above date and was hospitalized for further evaluation of their emergent condition. Critical Care patient: No - Discharge Referral Referred to [facility] No ATTENDING PHYSICIAN STATEMENT I saw and evaluated the patient. I reviewed the resident's note and discussed the case with the resident. I agree with the resident's findings and plan as documented. SUBJECTIVE: OBJECTIVE: ASSESSMENT AND PLAN:
== END 2019-03-27 16:30 | disposition home or self-care (01) | DRG 603 ==
LOC: JER 14:27 → JERBED 15:27 → J4S 19:52
PROVIDERS: ADMIT Internal Medicine; ATTEND Internal Medicine
DX: L03.114 Cellulitis of left upper limb (principal); E78.5 Hyperlipidemia, unspecified; E03.9 Hypothyroidism, unspecified; D64.9 Anemia, unspecified
CPT/HCPCS: 36415; 80053; 84443; 85025; 85027; 85610; 85651; 86140; 87040; 93005; 93010; 93971; 99283-25

== ENCOUNTER 2021-07-18 04:34 | Day surgery (SDC) | payer OTHER ==
[2021-07-16 14:59] VITALS: BMI 25.0
[2021-07-18 09:59] VITALS: TEMP 97.4
[2021-07-18 11:39] VITALS: BP 115/79; PULSE 52
== END 2021-07-18 11:10 | disposition home or self-care (01) ==
LOC: JASU-ENDO 04:34
PROVIDERS: ATTEND Internal Medicine Gastroenterology
PROC: 0DB68ZX Excision of Stomach, Via Natural or Artificial Opening Endoscopic, Diagnostic (ICD-10-PCS; 2021-07-18)
PROC: 0DB28ZX Excision of Middle Esophagus, Via Natural or Artificial Opening Endoscopic, Diagnostic (ICD-10-PCS; 2021-07-18)
PROC: 0DBK8ZX Excision of Ascending Colon, Via Natural or Artificial Opening Endoscopic, Diagnostic (ICD-10-PCS; 2021-07-18)
PROC: 0DB98ZX Excision of Duodenum, Via Natural or Artificial Opening Endoscopic, Diagnostic (ICD-10-PCS; principal; 2021-07-18 09:00)
DX: Z12.11 Encounter for screening for malignant neoplasm of colon (principal); D64.9 Anemia, unspecified; K29.00 Acute gastritis without bleeding; K21.00 Gastro-esophageal reflux disease with esophagitis, without bleeding; D12.2 Benign neoplasm of ascending colon; K64.8 Other hemorrhoids; K57.30 Diverticulosis of large intestine without perforation or abscess without bleeding; Z80.0 Family history of malignant neoplasm of digestive organs
CPT/HCPCS: 88305-TC; 88342-TC